=== PATIENT | female | born 1985 | race Hispanic/Latino ===

== ENCOUNTER → 2022-10-17 12:25 | Outpatient (CLI) | payer OTHER, SELFPAY ==
[2022-10-17 12:59] LABS: Add Manual Diff / Slide Review NO; Basophils Absolute Auto 0 /uL (0-100); Basophils Percent Auto 0.3 % (0-2); Eosinophils Absolute Auto 0 /uL (0-450); Eosinophils Percent Auto 0.3 % (2-4); Hematocrit 38.3 % (36-46); Hemoglobin 13.4 g/dL (12.0-16.0); Lymphocytes Absolute Auto 1400 /uL (1100-4500); Lymphocytes Percent Auto 17.8 % (25-40); Mean Corpuscular Hemoglobin 31.6 PG (26-34); Mean Corpuscular Volume 90.2 fL (80-100); Monocytes Absolute Auto 500 /uL (0-900); Monocytes Percent Auto 5.9 % (3-14); Neutrophils Absolute Auto 5900 /uL (1500-7000); Neutrophils Percent Auto 75.7 % (50-75); Platelet Count 230 X10^3/uL (150-400); Red Blood Cell Count 4.24 X10^6/uL (4.0-5.2); Red Cell Distribution Width 14.6 % (11.6-14.8); White Blood Cell Count 7.9 X10^3/uL (4.5-11.0)
[2022-10-18 06:36] LABS: Varicella IgG Antibody >4000 index (Immune >165)
[2022-10-18 07:36] LABS: RPR Screen Non Reactive (Non Reactive); x Labcorp Estim. Avg Glu (eAG) 94 mg/dL (.); x Labcorp Hemoglobin A1c 4.9 % (4.8-5.6)
[2022-10-18 18:45] LABS: Hepatitis B Surface Antigen NEGATIVE s/c (NEGATIVE); Rubella Antibody IgG 24.4 IU/mL (>15)
[2022-10-18 19:03] LABS: HIV 1 & 2 Ab/Ag 4th Gen Combo NEGATIVE (NEGATIVE); Hep C Virus Ab w/Reflex Quant NEGATIVE s/c (NEGATIVE)
== END ==
PROVIDERS: Referring Provider Obstetrics & Gynecology; Visit Provider Obstetrics & Gynecology
DX: Z34.81 Encounter for supervision of other normal pregnancy, first trimester (principal)
CPT/HCPCS: 36415; 80055; 83036; 86787; 86803; 86850; 86900; 86901; 87086; 87389

== ENCOUNTER → 2022-11-15 16:16 | Outpatient (CLI) | payer OTHER, SELFPAY ==
[2022-11-15 20:42] LABS: Urine N gonorrhoeae NOT DETECTED
[2022-11-15 21:18] LABS: Urine Chlamydia NOT DETECTED
== END ==
PROVIDERS: PCP Naturopath; Visit Provider Obstetrics & Gynecology
DX: Z34.82 Encounter for supervision of other normal pregnancy, second trimester (principal); Z3A.14 14 weeks gestation of pregnancy
CPT/HCPCS: 87491; 87591

== ENCOUNTER → 2022-12-20 16:16 | Outpatient (CLI) | payer OTHER, SELFPAY ==
--- NOTE | 2022-12-20 16:17 | DI.US.S_ITS ---
PROCEDURE: US OB >= 14 WEEKS FETUS INDICATIONS: anatomy scan OUTSIDE/PRIOR DATING DATA: Last menstrual period (LMP): Not provided LMP-based estimated date of delivery (SANDHYA): 05/16/2023 First dating scan (date and location): 10/15/2022 Estimated date of delivery (SANDHYA) from first dating scan: 05/17/2023 The calculations are made using the clinical SANDHYA of 05/16/2023. TECHNIQUE: Real-time scanning was performed of the fetus, with image documentation and biometric measurements. Endovaginal scanning: Not performed. COMPARISON: [facility], , OB <= 14 WEEKS FETUS, 11/15/2022, 16:38. FINDINGS: General: A single living intrauterine gestation is present. Presentation: variable Placenta: Placental position is posterior, without previa. Amniotic fluid index: 13.5 cm, normal range is 5-24 cm. Single deepest vertical pocket is 4.4 cm. heart rate: 168 beats per minute. Maternal cervical canal: 3.8 cm long. Normal lower limit is 2.5 cm. biometrics: Biparietal diameter: 4.3 cm, 19 weeks 0 days Head circumference: 16.3 cm, 19 weeks 0 days Abdominal circumference: 13.6 cm, 19 weeks 0 days Femur length: 3.1 cm, 19 weeks 4 days Clinically estimated gestational age: 19 weeks 0 days Composite gestational age from present scan: 19 weeks 1 day Estimated weight and percentile: 283 g, 62nd percentile Anatomic survey: Neuro: Ventricles are non-dilated at less than 10 mm. Cisterna magna is normal at 3-11 mm. Cerebellum is normal in size and morphology. Nuchal skin fold: Normal at less than 6 mm between 14-21 weeks gestational age. Face: Nose and lips, facial profile are normal. Spine: No evidence for spina bifida. Heart: 4-chambered heart is present, with normal ventricular outflow tracts. Diaphragm: Diaphragm is intact. Stomach: Left-sided stomach is present. Kidneys: No hydronephrosis. Normal is less than 5 mm in 2nd trimester, less than 7 mm in 3rd trimester. Cord: 3-vessel cord has orthotopic insertion. Bladder: Normal in size. Extremities: All 4 extremities identified. IMPRESSION: 1. Single live intrauterine with appropriate interval growth. 2. anatomic survey is within normal limits. We strive to produce accurate, complete, and clear reports of imaging services. To assist us in improving patient care, this report was composed using standard report templates and voice recognition software. Therefore, it may contain abnormal punctuation, insertions and/or omissions. Occasional wrong-word or sound-alike substitutions may occur. Though we review the report and make efforts to correct it, we do recommend that the report be read carefully in proper context to recognize any text inaccuracies. Approved by: Vahe Omalley M.D. on 12/21/2022 at 12:16
== END ==
PROVIDERS: PCP Naturopath; Referring Provider Obstetrics & Gynecology; Visit Provider Obstetrics & Gynecology
DX: Z34.82 Encounter for supervision of other normal pregnancy, second trimester (principal); Z3A.19 19 weeks gestation of pregnancy
CPT/HCPCS: 76811

== ENCOUNTER 2023-03-07 10:05 | Outpatient (CLI) | payer OTHER, SELFPAY ==
--- NOTE | 2023-03-07 10:35 | PM.OBTRLD ---
Visit Information Visit Information Date of evaluation: 03/07/23 Primary OB Provider: Ella Zelaya On-call OB Provider: Steffi Luong Reason for Evaluation: Yes non-stress test non-stress test reason: decreased movement Comments/Additional reasons for admission: Patient is a P0 at 30 weeks gestation who comes in complaining of decreased movement. After being on the monitor for short period time she was feeling baby movement. Vital Signs Vital Signs: Blood pressure 117/69, pulse of 80, temperature 36.4? [facility] Medical History (Updated 03/07/23 @ 10:38 by Steffi Luong MD) Infertility associated with anovulation Migraine with aura PCOS (polycystic ovarian syndrome) Surgical History (Updated 09/15/22 @ 15:44 by Ivonne Farah, RN) [place] teeth extracted Family History (Updated 09/15/22 @ 15:46 by Ivonne Farah, RN) Grandmother Diabetes mellitus Family/Other Diabetes mellitus Mother Pre-diabetes Grandmother Heart disease Granddaughter Stomach cancer Father Hypertension Sister Hypertension Social History marital status: number of children: 0 household members: spouse lives independently: Yes caregiver/support person: No housing: house pets and animals: Yes (cats, managing litter box) education level: college (some college, certificate program) occupational status: employed current occupational exposures/hazards: No special osorio needs: No travel history: over 6 months ago seatbelt use: always helmet use: Yes water heater temp set < 120 deg: Yes working smoke detector in home: Yes fire extinguisher in home: Yes carbon monox detector in home: Yes firearms in home: No do you feel safe at home: Yes Smoking Status: Never smoker second hand exposure: No alcohol intake: former (rarely when not ) substance use type: does not use during the past year weight has: decreased > 10 lbs (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) daily servings fruits/ve or more times/day caffeine: Yes (occasional cup coffee) Type(s) of exercise: walking, regular exercise, weight lifting and running (treadmill) duration: 45-60 minutes/day Evaluation Evaluation Baseline heart rate: 145 Variability: Moderate (11-25) monitor accelerations: Present Monitor Decelerations: Absent Contraction Frequency (minutes): 0 Category of Tracing: Reactive Status: Category l Diagnosis, Plan/Disposition Final Diagnosis (1) Decreased movement during : Status: Acute (2) 30 weeks gestation of : Status: Acute Plan/Disposition Plan: Patient with concern of decreased movement however she was feeling the baby move well here at the hospital. NST reactive. Patient reassured. Patient is sent home with kick counts. OB Disposition: home
== END 2023-03-07 10:40 | disposition home or self-care (01) ==
LOC: OB 03-21 08:04
PROVIDERS: PCP Naturopath; Referring Provider Obstetrics & Gynecology; Visit Provider Obstetrics & Gynecology
DX: O36.8130 Decreased fetal movements, third trimester, not applicable or unspecified (principal); Z3A.30 30 weeks gestation of pregnancy
CPT/HCPCS: 59025; G0378; G0379

== ENCOUNTER → 2023-03-16 16:47 | Outpatient (CLI) | payer OTHER, SELFPAY | PROVIDERS: PCP Naturopath; Visit Provider Obstetrics & Gynecology | DX: R39.15 Urgency of urination (principal) | CPT/HCPCS: 87086 ==

== ENCOUNTER → 2023-04-12 09:28 | Outpatient (CLI) | payer OTHER, SELFPAY ==
[2023-04-12 10:29] LABS: Hematocrit 37.6 % (36-46); Hemoglobin 13.1 g/dL (12.0-16.0)
== END ==
PROVIDERS: PCP Naturopath; Referring Provider Student in an Organized Health Care Education/Training Program; Visit Provider Student in an Organized Health Care Education/Training Program
DX: Z34.83 Encounter for supervision of other normal pregnancy, third trimester (principal)
CPT/HCPCS: 36415; 85014; 85018

== ENCOUNTER → 2023-04-27 08:25 | Outpatient (CLI) | payer OTHER, SELFPAY ==
[2023-04-28 11:41] LABS: Strep Grp B PCR NEG for Grp B Strep
== END ==
PROVIDERS: PCP Naturopath; Visit Provider Obstetrics & Gynecology
DX: Z34.93 Encounter for supervision of normal pregnancy, unspecified, third trimester (principal); Z3A.37 37 weeks gestation of pregnancy
CPT/HCPCS: 87653

== ENCOUNTER 2023-05-14 09:51 | Outpatient (CLI) | payer OTHER, SELFPAY | END 2023-05-14 11:39 | disposition home or self-care (01) | LOC: LABOR 11:02 → OB 05-15 13:09 | PROVIDERS: PCP Naturopath; Referring Provider Obstetrics & Gynecology; Visit Provider Obstetrics & Gynecology | DX: O09.523 Supervision of elderly multigravida, third trimester (principal); Z3A.39 39 weeks gestation of pregnancy | CPT/HCPCS: 59025; G0378; G0379 ==

== ENCOUNTER 2023-05-15 13:40 | Outpatient (CLI) | payer OTHER, SELFPAY | END 2023-05-15 14:45 | disposition home or self-care (01) | LOC: LABOR 13:49 → OB 05-24 16:06 | PROVIDERS: PCP Naturopath; Referring Provider Obstetrics & Gynecology; Visit Provider Obstetrics & Gynecology | DX: O47.1 False labor at or after 37 completed weeks of gestation (principal); Z3A.39 39 weeks gestation of pregnancy | CPT/HCPCS: 59025; G0378; G0379 ==

== ENCOUNTER 2023-05-15 17:16 | Inpatient (IN) | payer OTHER, SELFPAY ==
--- NOTE | 2023-05-15 17:59 | PM.OBHP.IH.1 ---
OB HPI Date/Time Date of admission: 05/15/23 Date Patient Seen: 05/15/23 Time Patient Seen: 17:59 History of Present Condition Chief complaint: SANDHYA Calculator Estimated Delivery Date Method Current WG Current Estimate 05/16/23 Conception 39w 6d Other Estimates 05/18/23 LMP (Certain) 39w 4d 05/15/23 Ultrasound #1 40w 0d Estimated Gestational Age (weeks): 39+6 : 2 Para: 0 care: good care, initiated at week # (9), number of visits (13) and pounds weight gain (43) Dating criteria OB: LMP confirmed by 1st trimester US Ultrasounds: normal 1st trimester US and normal mid trimester US Obstetrical complications: none Medical complications OB: none Preadmission Labs Last OB Lab Results: Blood Type O Positive 10/17/22 12:40 Antibody Screen Negative 10/17/22 12:40 Hematocrit 37.6 % (36-46) 04/12/23 10:18 Hemoglobin 13.1 g/dL (12.0-16.0) 04/12/23 10:18 Hepatitis B Surface Antigen Negative s/c (NEGATIVE) 10/17/22 12:40 Hepatitis C Antibody Negative s/c (NEGATIVE) 10/17/22 12:40 Rubella Antibody 24.4 IU/mL (>15) 10/17/22 12:40 Varicella-Zoster IgG Antibody >4000 index (Immune >165) 10/17/22 12:40 Group B Streptococcus (PCR) Neg for grp b strep 04/27/23 08:25 -: Chlamydia screen: negative, Gonorrhea screen: negative and Urine: negative -: PAP smear: Normal External Labs -: Urine: negative Prior (ies) Past Pregnancies Del. Date GA/Weeks Labor Lgth Wt Sex Route Outcome Anesthesia Place Delv Breastfeed Preg Comp Name 09/23/18 ~10? spontaneous Delivery Date: 09/23/18 Last Updated by: Ivonne Farah RN very irregular menses, unsure how far along she was. No complications after bleeding resolved Evaluation Evaluation Baseline heart rate: 140 Variability: Moderate (11-25) monitor accelerations: Present Monitor Decelerations: Absent Contraction Frequency (minutes): 3 Uterine Contraction Intensity: Moderate Status: Category l Dilation (cm): 6 Effacement (%): 80 station: -1 PFSH Medical History (Updated 05/10/23 @ 11:35 by Ella Zelaya MD) Migraine with aura PCOS (polycystic ovarian syndrome) Infertility associated with anovulation Surgical History (Updated 09/15/22 @ 15:44 by Ivonne Farah, RN) [place] teeth extracted Family History (Updated 09/15/22 @ 15:46 by Ivonne Farah, RN) Grandmother Diabetes mellitus Family/Other Diabetes mellitus Mother Pre-diabetes Grandmother Heart disease Granddaughter Stomach cancer Father Hypertension Sister Hypertension Social History marital status: number of children: 0 household members: spouse lives independently: Yes caregiver/support person: No housing: house pets and animals: Yes (cats, managing litter box) education level: college occupational status: employed current occupational exposures/hazards: No special osorio needs: No travel history: over 6 months ago seatbelt use: always helmet use: Yes water heater temp set < 120 deg: Yes working smoke detector in home: Yes fire extinguisher in home: Yes carbon monox detector in home: Yes firearms in home: No do you feel safe at home: Yes Smoking Status: Never smoker second hand exposure: No alcohol intake: former substance use type: does not use during the past year weight has: decreased > 10 lbs daily servings fruits/ve or more times/day caffeine: Yes (occasional cup coffee) Type(s) of exercise: walking, regular exercise, weight lifting and running duration: 45-60 minutes/day Meds Home Medications and Allergies Home Medications Medication Instructions Recorded Confirmed Type Lactobacillus rhamnosus GG 20 1 cell PO DAILY 09/15/22 05/15/23 History billion cell capsule (Probiotic Digestive Care) cholecalciferol (vitamin D3) 10 4,000 unit PO DAILY 09/15/22 05/15/23 History mcg/drop (400 unit/drop) oral drops ferrous gluconate 320 mg (36 mg mg PO 09/15/22 05/15/23 History iron) tablet inositol 650 mg tablet 550 mg PO DAILY 09/15/22 05/15/23 History omega 8-dad-yhd-fish oil 1,000 mg 2 cap PO DAILY 09/15/22 05/15/23 History (120 mg-180 mg) capsule (Fish Oil) prenat.vits,bao,lnd-eoyq-cxyfd 1 tab PO DAILY 09/15/22 05/15/23 History blood-glucose meter,continuous #1 ea 01/23/23 05/15/23 Rx Allergies Allergy/AdvReac Type Severity Reaction Status Date / Time No Known Drug Allergies Allergy Unverified 05/15/23 13:02 OB Exam Narrative Exam Narrative: Generally: Patient breathing through contractions, no acute distress Lungs: Clear to auscultation bilaterally Cardiovascular: Regular rate and rhythm Fundal height: 40 cm Estimated weight: 7-1/2-8 lb Extremities: No edema, negative Homans Assessment and Plan Assessment and Plan Assessment and Plan narrative: Assessment: 38-year-old 2 para 0 at 39-,6/7 weeks gestation in active labor GBS negative Plan: Declines epidural for now AROM with meconium-stained amniotic fluid Expectant management to Time Spent with Patient Total time spent with greater than 50% in coordination of care (as documented) at patient's floor/unit and/or counseling patient:: 15-24 minutes
[2023-05-15 18:56] VITALS: BP 138/83
[2023-05-15 19:34] LABS: Add Manual Diff / Slide Review NO; Basophils Absolute Auto 0 /uL (0-100); Basophils Percent Auto 0.2 % (0-2); Eosinophils Absolute Auto 100 /uL (0-450); Eosinophils Percent Auto 0.5 % (2-4); Hematocrit 40.3 % (36-46); Hemoglobin 13.8 g/dL (12.0-16.0); Lymphocytes Absolute Auto 1400 /uL (1100-4500); Lymphocytes Percent Auto 13.5 % (25-40); Mean Corpuscular HGB Conc 34.2 % (30-36); Mean Corpuscular Hemoglobin 32.3 PG (26-34); Mean Corpuscular Volume 94.6 fL (80-100); Monocytes Absolute Auto 500 /uL (0-900); Monocytes Percent Auto 5.4 % (3-14); Neutrophils Absolute Auto 8100 /uL (1500-7000); Neutrophils Percent Auto 80.4 % (50-75); Platelet Count 206 X10^3/uL (150-400); Red Blood Cell Count 4.26 X10^6/uL (4.0-5.2); Red Cell Distribution Width 14.1 % (11.6-14.8); White Blood Cell Count 10.1 X10^3/uL (4.5-11.0)
--- NOTE | 2023-05-15 22:10 | PM.OBPNLAB ---
Date/Time Date Patient Seen: 05/15/23 Time Patient Seen: 22:10 Pain Control Pain control: tolerating well Pelvic Exam Dilation (cm): 6.5 Effacement (%): 80 station: 0 Amniotic membrane status: Ruptured Contractions Contractions on admission: regular Monitor mode: External Contraction frequency (min): 2 Contraction duration (min): 1 Contraction pattern: Regular Contraction intensity: Moderate Status status: Category l Heart Rate Baseline: 135 Monitor Accelerations: Present Monitor Decelerations: Absent Monitor Variability: Moderate Assessment and Plan Assessment: active labor Comments: Epidural Pitocin as needed Expectant management to
--- NOTE | 2023-05-15 23:10 | PM.AN.REGBLK ---
Regional Block Pre-procedure Procedure: Continuous Lumbar Epidural for L&D Attending OB provider: Ella Zelaya PMH/ROS narrative: PSH/Anesthesia history narrative: None Exam narrative: WNL Labs: Hct 40.3 % (36-46) 05/15/23 18:53 Plt Count 206 X10^3/uL (150-400) 05/15/23 18:53 Medications: Current Medications Generic Name Dose Route Start Last Admin Trade Name Freq PRN Reason Stop Dose Admin Calcium Carbonate 1,000 mg 05/15/23 18:53 Calcium Carbonate 500 Mg Tab PO Q4HR PRN Dyspepsia Carboprost Tromethamine 250 mcg 05/15/23 18:53 Carboprost 250 Mcg/Ml Ampul IM Q90M PRN Bleeding Oxytocin/Lactated Ringer's 30 unit in 500 mls @ 200 mls/hr 05/15/23 18:53 Oxytocin Premix IV CONT PRN Bleeding Protocol Tranexamic Acid 1,000 mg/ 100 mls @ 200 mls/hr 05/15/23 18:53 Sodium Chloride IV NOW PRN Bleeding Lactated Ringer's 1,000 mls @ 100 mls/hr 05/15/23 19:00 Lactated Ringers IV CONT MARIO Lidocaine HCl 20 ml 05/15/23 18:53 Lidocaine 1% 20 Ml INJ INTRA-OP PRN Post Delivery Methylergonovine Maleate 0.2 mg 05/15/23 18:53 Methylergonovine 0.2 Mg Tablet PO Q6HR PRN Heavy Bleeding Methylergonovine Maleate 0.2 mg 05/15/23 18:53 Methylergonovine 0.2 Mg/Ml Vial IM NOW PRN Bleeding Misoprostol 800 mcg 05/15/23 18:53 Misoprostol 200 Mcg Tablet WI NOW PRN Bleeding Misoprostol 400 mcg 05/15/23 18:53 Misoprostol 200 Mcg Tablet SL NOW PRN Bleeding Naloxone HCl 0.2 mg 05/15/23 18:53 Naloxone 0.4 Mg/Ml Vial IV Q2MIN PRN Opiate Reversal Ondansetron HCl 4 mg 05/15/23 18:53 Ondansetron 4 Mg/2 Ml Inj IV Q4HR PRN Nausea And Vomiting Oxytocin 10 unit 05/15/23 18:53 Oxytocin 10 Unit/Ml Vial IM NOW PRN Bleeding Allergies: Allergies Allergy/AdvReac Type Severity Reaction Status Date / Time No Known Drug Allergies Allergy Verified 05/15/23 18:57 Procedure Insertion date: 05/15/23 Insertion time: 22:45 Prep/Local: betadine x3 and 1% lidocaine Interspace: L3-4 Patient position: sitting Needle: 18 gauge Hustead Loss of resistance with: air BAO at (cm): 8 Catheter placed at SKIN (cm): 13 Catheter in SPACE (cm): 5 Initial Medications TEST DOSE time: 22:46 BOLUS DOSE time: 22:47 BOLUS DOSE (mL): 10 BOLUS DOSE med: 0.25% bupivacaine (And Fentanyl 100 mcg) Infusion INFUSION: 0.125% bupivacaine and with fentanyl 2 mcg/mL Initial rate (mL/hr): 12 Post-procedure Anesthesia time START: 22:30 Anesthesia time END: 10:09 Post-procedure Anesthesia Assessment: Yes CV function: HR/BP stable, Yes Resp function: RR/sat/airway adequate, Yes Post-op hydration adequate, Yes Pain control adequate, Yes Nausea & vomiting absent, Yes Temperature > 36 C, Yes Mental status appropriate and Yes Anesthesia complications
[2023-05-16] MEDS: OXYTOCIN PREMIX 30 UNIT/500 ML PLAST..BAG IV (05:19)
--- NOTE | 2023-05-16 08:05 | PM.OBPNLAB ---
Date/Time Date Patient Seen: 05/16/23 Time Patient Seen: 08:05 Pain Control Pain control: tolerating well and epidural Pelvic Exam Dilation (cm): 10 Effacement (%): 100 station: +1 Amniotic membrane status: Ruptured Contractions Contractions on admission: regular Monitor mode: External Pitocin rate (mU/min): 2 Contraction frequency (min): 2 Contraction duration (min): 1 Contraction pattern: Regular Contraction intensity: Moderate Status status: Category l Heart Rate Baseline: 135 Monitor Accelerations: Present Monitor Decelerations: Prolonged (1.5 min) Monitor Variability: Moderate Assessment and Plan Assessment: active labor Comments: Begin pushing Expectant management to
[2023-05-16] MEDS: FENT 2MCG/ML BUPIV 0.1% EPI 200 MCG/100 ML PLAST..BAG 12 MCG EPIDURAL (09:40)
--- NOTE | 2023-05-16 10:28 | P.PCNOB_ITS ---
Events: Labor Augmentation Labor & Delivery Delivery date: 05/16/23 Intrapartal Events: Prolonged Labor > 20 hours Cervical ripening method: none Induction method: none Delivery augmentation: rupture of membranes Delivery monitor: external FHT and external uterine Route of delivery: Episiotomy description: None L&D Laceration Description: Vaginal - 1st Degree Delivery repair: vicryl Quantitative Blood Loss: 200 Anesthesia Type: Epidural Complications: None Narrative: Patient complete and pushed for 34 minutes. At 10:09 a.m., a live female delivered spontaneously in the ZARA presentation, over an intact perineum. A tight nuchal cord x1 was cut on the perineum. The remainder of the body delivered without difficulty and was placed on mom's abdomen. Pitocin was given in the IV fluids. Cord bloods were obtained. The placenta delivered intact with a three-vessel cord at 10:13 a.m.. The fundus was massaged to firm. A first-degree perineal/vaginal laceration was repaired with 2-0 Vicryl in the usual fashion. Hemostasis was achieved. Apgars 8 at 1 minute and 8 at 5 minutes. Epidural analgesia. . Mom and stable to recovery. [place] Baby 1: Infant gender: Female Presentation: vertex Position: Right Occiput Anterior Placenta delivery description: Spontaneous Cord Vessel Description: 3 Vessels, Tight and Clamped/Cut (on the perineum) score (1 min): 8 score (5 min): 8 weight: 6 lb 6.8 oz Plan for aftercare: Routine care
[2023-05-16] MEDS: IBUPROFEN 600 MG TABLET PO ×3 (11:40→23:31)
[2023-05-16] MEDS: DERMOPLAST SPRAY 20% 60 ML 1 SPRAY TOP (11:41)
[2023-05-16] MEDS: ACETAMINOPHEN 325 MG TABLET 650 MG PO (21:48)
[2023-05-17] MEDS: IBUPROFEN 600 MG TABLET PO (05:37)
[2023-05-17 06:17] LABS: Hematocrit 35.3 % (36-46)
[2023-05-17] MEDS: DOCUSATE 100 MG CAPSULE PO (10:00)
--- NOTE | 2023-05-17 10:03 | PM.OBDS.1 ---
Discharge Providers Provider Date of admission: 05/15/23 17:16 Discharge Date: 05/17/23 Primary care physician: Morelia Yoon ND Consults: 05/15/23 18:53 Consult to Anesthesiology Urgent Comment: Consulting Provider: Abram Stewart Reason for consultation: Epidural 05/17/23 10:26 Consult to Email Engineer Routine Comment: Discharge provider: Ella Zelaya MD Summary Hospital Course Date Patient Seen: 05/17/23 Time Patient Seen: 10:03 Diagnoses: Forty weeks' gestation Augmentation of labor with Pitocin Artificial rupture of membranes Meconium-stained amniotic fluid Epidural analgesia Really spontaneous vaginal delivery First-degree vaginal/perineal laceration and repair Hospital Course: Patient is a 38-year-old 2 para 1 who presented on May 15, 2023 in early to active labor. She had an artificial rupture of membranes with meconium-stained amniotic fluid. She received an epidural for pain management. She received Pitocin for augmentation of labor. She had a spontaneous vaginal delivery on May 16, 2023 without complication. She had a first-degree vaginal/perineal laceration which was repaired in the usual fashion. Her course was unremarkable. She is discharged home. Peripartum Data Delivery Method: Natural Vaginal Laceration Description: Perineal - 1st Degree and Vaginal - 1st Degree Procedures: Artificial rupture of membranes Epidural analgesia Pitocin augmentation of labor Spontaneous vaginal delivery First-degree perineal/vaginal laceration repair complications: none 1: Gender: Female Disposition of : home Status at Discharge Cognitive/behavioral status at discharge: oriented Functional status at discharge: independent ambulation Overall status at discharge: patient is progressing back to baseline Time Spent with Patient Time attestation: Total time spent providing and/or coordinating discharge services: Time spent: Less than 30 minutes Objective Labs 05/17/23 05:52 Labs: Laboratory Results - last 24 hr 05/17/23 05:52 Hgb 12.0 Hct 35.3 L Exam Narrative Exam Narrative: Generally: Patient is sitting up in bed, no acute distress Fundus: Firm at U -2 Extremities: No edema, negative Homans Discharge Plan Discharge Plan Patient Disposition: Home Provider Discharge Comment: Call with fever, chills, or bleeding vaginally more than a pad in an hour Ibuprofen 600 mg every 6 hours as needed Tylenol 650 mg every 6 hours as needed Discharge orders & Medications Prescriptions: Continued (DME) blood-glucose meter,continuous Misc See Rx Instructions .ROUTE .MEDSUPPLY Qty: 1 0RF Rx Instructions: Continuous glucose monitor to check blood sugars during prenat.vits,boa,[id number] Tablet 1 tab PO DAILY ferrous gluconate 320 mg (36 mg iron) tablet See Rx Instructions .ROUTE .COMPLEX Rx Instructions: per md order omega 2-qzg-wux-fish oil [Fish Oil] 1,000 mg (120 mg-180 mg) capsule 2 cap PO DAILY cholecalciferol (vitamin D3) 10 mcg/drop (400 unit/drop) drops 4,000 unit PO DAILY inositol 650 mg tablet 550 mg PO DAILY Probiotic Digestive Care 20 billion cell capsule 1 cell PO DAILY Follow up/Referrals: Steffi Luong MD [Physician] - ( Appt w/ Dr. Luong: Sunday, Jun.27 @ 2pm) Diet/Activity/Treatments Diet: Regular Activity: Nothing in the vagina for 6 weeks Skin/Wound/Dressing Care Report to your healthcare provider any signs of infection, such as:: chills, fever, increased pain and unusual drainage Visit Report/Discharge Packet Instructions: DI for Labor and Delivery, Vaginal Stand Alone Forms: Discharge: Care, Patient Portal/API, Stroke Signs & Symptoms Discharge Data Primary Care Provider: Morelia Yoon
== END 2023-05-17 12:25 | disposition home or self-care (01) | DRG 806 ==
PROVIDERS: Admitting Provider Obstetrics & Gynecology; PCP Naturopath; Referring Provider Obstetrics & Gynecology; Visit Provider Obstetrics & Gynecology
DX: O76 Abnormality in fetal heart rate and rhythm complicating labor and delivery (principal); O47.1 False labor at or after 37 completed weeks of gestation; Z37.0 Single live birth; Z3A.39 39 weeks gestation of pregnancy; O70.0 First degree perineal laceration during delivery; O63.1 Prolonged second stage (of labor)
CPT/HCPCS: 36415; 59025; 59050; 59400; 85014; 85018; 85025; 86850; 86900; 86901; G0378; G0379; J2590